=== PATIENT | female | born 1950 ===

== ENCOUNTER 2021-08-10 07:00 | Inpatient (IN) | payer OTHER ==
[~2021-08-10] VITALS: Ht 167.6 cm; Wt 78.9 kg
[2021-08-10] MEDS ORDERED: ZOCOR20 MG PO (08:30)
[2021-08-10] MEDS ORDERED: GLIMEPIRIDE1 M1 PO (08:31)
[2021-08-10] MEDS ORDERED: NORVASC10 MG PO (08:31)
[2021-08-10] MEDS ORDERED: CLORTHALIDONE PO (10:10)
[2021-08-30] MEDS ORDERED: CHLORTHALIDONE25 MG PO (08:16)
[2021-08-31] MEDS ORDERED: BACTRIM DS TAB1 EACH PO (06:25)
[2021-08-31] MEDS ORDERED: INTEGRA PLUS C1 EACH PO (06:25)
[2021-08-31] MEDS ORDERED: OXYC1TAB9 PO (06:25)
[2021-08-31] MEDS ORDERED: XARELTO10 MG PO (06:25)
== END 2021-08-31 20:43 | disposition home or self-care (01) | DRG 470 ==
LOC: SURH 08-15 07:00 → O/R 08-29 09:50 → SURH 08-29 10:00
PROVIDERS: ADMIT Orthopaedic Surgery Sports Medicine; ATTEND Orthopaedic Surgery Sports Medicine
PROC: 0SRC0J9 Replacement of Right Knee Joint with Synthetic Substitute, Cemented, Open Approach (ICD-10-PCS; principal; 2021-08-29 10:00)
DX: M17.11 Unilateral primary osteoarthritis, right knee (principal); I10 Essential (primary) hypertension; E11.9 Type 2 diabetes mellitus without complications; Z20.822 Contact with and (suspected) exposure to COVID-19